=== PATIENT | male | born 1975 | race Caucasian/White ===

== ENCOUNTER 2020-07-01 17:28 | Emergency (ER) | payer MEDICAID ==
[~2020-07-01] VITALS: Ht 182.9 cm; Wt 77.0 kg
[2020-07-01] MEDS ORDERED: LORAZEPAM 1MG TABLET PO ONE (19:00)
[2020-07-01 19:19] LABS: BASOPHILS % 0.9 % (0.0-2.0); EOSINOPHILS % 0.3 % (0.0-5.0); HEMATOCRIT. 41.6 % (42.0-52.0); HEMOGLOBIN. 13.8 g/dL (14.0-18.0); LYMPHOCYTES % 17.1 % (20.0-50.0); MEAN CORPUSCULAR HEMOGLOBIN 31.1 pg (28.0-32.0); MEAN CORPUSCULAR VOLUME 93.6 fL (80.0-94.0); MEAN PLATELET VOLUME 8.5 fl (7.4-10.4); NEUTROPHILS % 72.7 % (40.0-76.0); PLATELET 267 x1000/uL (130-400); RED BLOOD CELL COUNT 4.44 mill/uL (4.7-6.1); RED CELL DISTRIBUTION WIDTH 14.3 % (11.6-14.6)
[2020-07-01 19:23] LABS: CHLORIDE 114 mEq/L (98-107)
[2020-07-01 19:27] LABS: ETHANOL BLOOD < 10 mg/dL
[2020-07-01] MEDS ORDERED: OLANZAPINE 5MG TABLET ODT PO ONE (20:15)
[2020-07-01] MEDS ORDERED: HALOPERIDOL LACTATE 5MG/ML VIAL IM ONE (20:45)
[2020-07-01] MEDS ORDERED: LORAZEPAM 2MG/ML CPJ IM ONE (20:45)
[2020-07-02] MEDS ORDERED: LORAZEPAM 2MG/ML CPJ IM NR (05:30)
[2020-07-02] MEDS ORDERED: HALOPERIDOL LACTATE 5MG/ML VIAL IM NR (05:30)
[2020-07-02] MEDS ORDERED: OLANZAPINE 10 MG/VIAL IM ONE (05:30)
[2020-07-02] MEDS ORDERED: ZIPRASIDONE MESYLATE 20MG/VIAL IM ONE (06:00)
[2020-07-02 08:59] LABS: *BARBITURATES SCREEN URINE NEGATIVE (NEGATIVE); *BENZODIAZEPINES SCREEN URINE NEGATIVE (NEGATIVE); *COCAINE SCREEN URINE PRESUMTIVE POSITIVE (NEGATIVE); CANNABINOID URINE SCREEN PRESUMTIVE POSITIVE (NEGATIVE); OPIATES URINE SCREEN NEGATIVE (NEGATIVE); PHENCYCLIDINE URINE SCREEN NEGATIVE (NEGATIVE)
[2020-07-02 09:00] LABS: *AMPHETAMINES SCREEN URINE PRESUMTIVE POSITIVE (NEGATIVE); METHADONE URINE SCREEN NEGATIVE (NEGATIVE)
[2020-07-03 13:24] VITALS: BP 108/62
== END 2020-07-03 13:30 | disposition home or self-care (01) ==
LOC: ER 17:28
DX: F23 Brief psychotic disorder (principal); F15.10 Other stimulant abuse, uncomplicated; F14.10 Cocaine abuse, uncomplicated; F12.10 Cannabis abuse, uncomplicated; F17.200 Nicotine dependence, unspecified, uncomplicated; F11.10 Opioid abuse, uncomplicated
CPT/HCPCS: 36415; 80053; 80305; 80307; 80320; 80329; 85025; 96372; 99285; J2060; J3490; G0480